=== PATIENT | female | born 1960 | race Caucasian/White ===

== ENCOUNTER 2018-01-11 18:36 | Emergency (ER) | payer OTHER ==
--- NOTE | 2018-01-11 19:16 | RADIOLOGY REPORT (SQ) ---
EXAM DESCRIPTION: CHEST PA/LAT COMPLETED DATE/TIME: 01/11/2018 7:05 pm REASON FOR STUDY: chest pain, sob COMPARISON: None. EXAM PARAMETERS: NUMBER OF VIEWS: two views TECHNIQUE: Digital Frontal and Lateral radiographic views of the chest acquired. RADIATION DOSE: NA LIMITATIONS: none FINDINGS: LUNGS AND PLEURA: No opacities, masses or pneumothorax. No pleural effusion. MEDIASTINUM AND HILAR STRUCTURES: No masses or contour abnormalities. HEART AND VASCULAR STRUCTURES: Heart normal size. No evidence for failure. BONES: No acute findings. HARDWARE: None in the chest. OTHER: No other significant finding. IMPRESSION: NO SIGNIFICANT RADIOGRAPHIC FINDING IN THE CHEST. TECHNICAL DOCUMENTATION: JOB ID: [id number] [employer]- All Rights Reserved Reading location - IP/workstation name: [email or web address]
--- NOTE | 2018-01-11 19:27 | ER Document Report ---
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 Patient states that she feels her chest discomfort is likely secondary to all the persistent coughing that she has had over the past week. She describes it as an aching, stabbing, diffuse chest wall pain. Nothing improves or worsens that symptom. She denies any history of similar symptoms in the past. She was seen in urgent care 4 days ago and diagnosed with influenza B. She states they prescribed Tamiflu which she discontinued this therapy after it induced vomiting. She reports they also gave her an inhaler and steroids but these do not seem to be providing any symptomatic relief. She denies any focal weakness, numbness, headache, neck pain or confusion. She has not had a recorded fever in the last 3-4 days. No nausea or vomiting. No diarrhea. TRAVEL OUTSIDE OF THE [place] IN LAST 30 DAYS: No - Related Data Allergies/Adverse Reactions: Penicillins Allergy (Verified 01/11/18 18:43) Past Medical History - General Information source: Patient - Social History Smoking Status: Never Smoker Chew tobacco use (# tins/day): No Frequency of alcohol use: Occasional Drug Abuse: None Lives with: Spouse/Significant other Family History: Reviewed & Not Pertinent Patient has suicidal ideation: No Patient has homicidal ideation: No Renal/ Medical History: Denies: Hx Peritoneal Dialysis Past Surgical History: Reports: Hx Gynecologic Surgery - for uterine prolapse, Hx Hysterectomy, Hx Orthopedic Surgery - bilateral rotator cuff Review of Systems - Review of Systems Notes: Constitutional: Negative for fever. HENT: Negative for sore throat. Eyes: Negative for visual changes. Cardiovascular: Positive for chest pain. Respiratory: Positive for shortness of breath. Gastrointestinal: Negative for abdominal pain, vomiting or diarrhea. Genitourinary: Negative for dysuria. Musculoskeletal: Negative for back pain. Skin: Negative for rash. Neurological: Negative for headaches, weakness or numbness. 10 point ROS negative except as marked above and in HPI. Physical Exam - Vital signs Vitals: Temp Pulse Resp BP Pulse Ox 97.6 F 93 20 158/98 H 96 03/25/18 19:05 01/11/18 19:05 01/11/18 19:05 01/11/18 19:05 01/11/18 19:05 Interpretation: Hypertensive Notes: PHYSICAL EXAMINATION: GENERAL: Well-appearing, well-nourished and in no acute distress. HEAD: Atraumatic, normocephalic. EYES: Pupils equal round and reactive to light, extraocular movements intact, sclera anicteric, conjunctiva are normal. ENT: nares patent, oropharynx clear without exudates. Moist mucous membranes. NECK: Normal range of motion, supple without lymphadenopathy LUNGS: Breath sounds clear to auscultation bilaterally and equal. No wheezes rales or rhonchi. HEART: Regular rate and rhythm without murmurs ABDOMEN: Soft, nontender, normoactive bowel sounds. No guarding, no rebound. No masses appreciated. EXTREMITIES: Normal range of motion, no pitting or edema. No cyanosis. NEUROLOGICAL: No focal neurological deficits. Moves all extremities spontaneously and on command. PSYCH: Normal mood, normal affect. SKIN: Warm, Dry, normal turgor, no rashes or lesions noted. Course - Re-evaluation Re-evalutation: 01/11/18 19:25 Patient presents with 1 week of shortness of breath, chest discomfort, body aches, and general fatigue after being diagnosed with influenza B 4 days ago. The patient's overall nontoxic appearance, vitals within acceptable limits at time of presentation without tachycardia, tachypnea or hypoxia. Lung examination without any wheezes or rales. Chest x-ray without any acute infiltrates or pneumothoraces. Proceed with basic laboratories including BNP, troponin, as well as an EKG. Will ambulate the patient on pulse oximetry. Anticipate likely ongoing shortness of breath secondary to influenza. 01/11/18 20:43 Chest x-ray is clear. Patient has maintain oxygen saturation above 97% the entire time that she walked. BNP and troponin are normal. CBC without anemia. Dissipate that the patient has ongoing shortness of breath and body aches likely secondary to ongoing influenza. She has received a lidocaine nebulizer here to reduce the frequency of her cough and will go home on TesInnFocus Incon Perles. At this time will discharge with return precautions and follow-up recommendations. Verbal discharge instructions given a the bedside and opportunity for questions given. Medication warnings reviewed. Patient is in agreement with this plan and has verbalized understanding of return precautions and the need for primary care follow-up in the next 24-72 hours. - Vital Signs Vital signs: Temp Pulse Resp BP Pulse Ox 97.4 F 72 19 140/83 H 97 01/11/18 20:56 01/11/18 20:56 01/11/18 20:56 01/11/18 20:56 01/11/18 20:56 - Laboratory Result Diagrams: 01/11/18 20:00 Laboratory results interpreted by me: 01/11/18 20:00 Seg Neutrophils % 31.1 L Lymphocytes % 50.7 H Monocytes % 13.1 H - Diagnostic Test Radiology reviewed: Image reviewed, Reports reviewed Radiology results interpreted by me: 01/11/18 20:44 Chest x-ray: No acute infiltrate or pneumothorax - EKG Interpretation by Me Additional EKG results interpreted by me: 01/11/18 20:44 Sinus rhythm. Rate 76. No ST elevations or depressions. QTC is 446. Discharge - Discharge Clinical Impression: Persistent cough, Body aches, Shortness of breath, Chest discomfort Condition: Good Disposition: HOME, SELF-CARE Additional Instructions: Your symptoms are likely due to a viral infection either influenza or similar virus. The only treatment at this time is supportive care including drinking plenty of fluids, Tylenol and ibuprofen, as well as a cough medicine that you have been sent home with cold [place]. Please discontinue doxycycline as there is no reason for you to continue taking this medication. Please return to the emergency department immediately if you become confused, have persistent vomiting, pass out, have severe headache, or have any other symptoms that are worrisome to you. Follow-up with your primary care doctor in the next several days. Prescriptions: Benzonatate [Tessalon Perles 100 mg Capsule] 100 mg PO Q8HP PRN #40 capsule PRN Reason:
[2018-01-11 20:10] LABS: NT PRO BNP 69 pg/mL (5-900)
[2018-01-11 20:11] LABS: TROPONIN I < 0.012 ng/mL
[2018-01-11 20:18] LABS: ABSOLUTE EOSINOPHILS # (AUTO) 0.3 10^3/uL (0.0-0.6); ABSOLUTE LYMPHOCYTES (AUTO) 2.9 10^3/uL (0.5-4.7); ABSOLUTE MONOCYTES (AUTO) 0.8 10^3/uL (0.1-1.4); ABSOLUTE NEUT (AUTO) 1.8 10^3/uL (1.7-8.2); BASOPHILS % (AUTO) 0.3 % (0-2); EOSINOPHILS % (AUTO) 4.8 % (0-6); HEMATOCRIT 42.9 % (36.0-47.0); HEMOGLOBIN 14.7 g/dL (12.0-15.5); LYMPHOCYTES % (AUTO) 50.7 % (13-45); MEAN CORPUSCULAR HEMOGLOBIN 29.7 pg (27.0-33.4); MEAN CORPUSCULAR HGB CONC 34.3 g/dL (32.0-36.0); MEAN CORPUSCULAR VOLUME 87 fl (80-97); MONOCYTES % (AUTO) 13.1 % (3-13); PLATELET COUNT 239 10^3/uL (150-450); RED BLOOD COUNT 4.95 10^6/uL (3.72-5.28); RED CELL DISTRIBUTION WIDTH 13.5 % (11.5-14.0); SEGMENTED NEUTROPHILS % (AUTO) 31.1 % (42-78); TOTAL CELLS COUNTED % (AUTO) 100 %; WHITE BLOOD COUNT 5.7 10^3/uL (4.0-10.5)
[2018-01-11] MEDS ORDERED: BENZONATATE 100 MG CAPSULE PO ONE (20:38)
[2018-01-11] MEDS ORDERED: LIDOCAINE 2% INJ-PF (20 MG/ML) 10 ML AMPUL NEB ONE (20:38)
[2018-01-11 20:58] VITALS: BP 140/83
--- NOTE | 2018-01-12 07:18 | EKG REPORT ---
SEVERITY:- NORMAL ECG - SINUS RHYTHM : Confirmed by: Kory Kerr MD 12-Jan-2018 07:17:56
== END 2018-01-11 20:56 | disposition home or self-care (01) ==
LOC: ER 18:36
DX: J10.1 Influenza due to other identified influenza virus with other respiratory manifestations (principal); R05 Cough; R06.02 Shortness of breath; R07.89 Other chest pain; I49.3 Ventricular premature depolarization; Z79.899 Other long term (current) drug therapy; Z88.0 Allergy status to penicillin; R53.83 Other fatigue
CPT/HCPCS: 93005; 94640; 99284; 36415; 85025; 84484; 83880; 71046; 93010; J3490